=== PATIENT | female | born 1965 | race Caucasian/White ===

== ENCOUNTER 2019-10-23 15:25 | Emergency (ER) | payer OTHER ==
[~2019-10-23] VITALS: Ht 180.3 cm; Wt 68.2 kg
[2019-10-23] MEDS ORDERED: normal saline 1000ML IV soln IVB ONE (15:45)
[2019-10-23] MEDS ORDERED: thiamine 100mg/ml 2ml inj. IV ONE (15:45)
[2019-10-23] MEDS ORDERED: folic acid 1mg/0.2ml inj IV ONE (15:45)
[2019-10-23 16:01] LABS: CLARITY,URINE CLEAR (Clear); COLOR,URINE YELLOW (Yellow); GLUCOSE, URINE NEGATIVE (Neg); KETONES,URINE NEGATIVE (Neg); LEUKOCYTE ESTERASE ,URINE NEGATIVE (Neg); NITRITES, URINE NEGATIVE (Neg); OCCULT BLOOD,URINE NEGATIVE (Neg); PROTEIN,URINE NEGATIVE (Neg); UROBILINOGEN,URINE 0.2 E.U/dL (0.2-1.0)
[2019-10-23 16:05] LABS: UA COLLECTION TYPE OTHER; URINE AMPHETAMINE SCREEN NEGATIVE (Neg); URINE BARBITUATE SCREEN NEGATIVE (Neg); URINE BENZODIAZEPINES SCREEN POSITIVE (Neg); URINE CANNABINOID SCREEN NEGATIVE (Neg); URINE COCAINE SCREEN NEGATIVE (Neg); URINE METHADONE SCREEN NEGATIVE (Neg); URINE OPIATE SCREEN NEGATIVE (Neg); URINE PHENCYCLIDINE SCREEN NEGATIVE (Neg)
[2019-10-23 16:15] LABS: BASOPHILS % (AUTO) 0.4 % (0-1); EOSINOPHILS % (AUTO) 0.4 % (0-6); HEMOGLOBIN 13.6 g/dl (12.0-16.0); LYMPHOCYTES # (AUTO) 2.8 X10'3 (1.1-4.8); LYMPHOCYTES % (AUTO) 32.7 % (21-51); MEAN CORPUSCULAR HEMOGLOBIN 36.8 PG (27.0-31.0); MEAN CORPUSCULAR HGB CONC 35.8 g/dL (33.0-36.5); MEAN CORPUSCULAR VOLUME 102.9 FL (78-98); MEAN PLATELET VOLUME 6.8 FL (7.4-10.4); MONOCYTES # (AUTO) 0.4 X10'3 (0-0.9); MONOCYTES % (AUTO) 4.3 % (2-12); NEUTROPHILS # (AUTO) 5.4 X10'3 (1.8-7.7); NEUTROPHILS % (AUTO) 62.2 % (42-75); PLATELET COUNT 244 X10'3 (140-440); RED CELL DISTRIBUTION WIDTH 12.8 % (11.5-14.5); WHITE BLOOD COUNT 8.6 X10'3 (4.5-11.0)
[2019-10-23 16:25] LABS: ALANINE AMINOTRANSFERASE 30 U/L (12-78); ALBUMIN 3.6 G/DL (3.4-5.0); ALBUMIN/GLOBULIN RATIO 1.1 (1.1-1.5); ALKALINE PHOSPHATASE 63 IU/L (46-116); ANION GAP 9 (8-16); ASPARTATE AMINO TRANSFERASE 30 U/L (10-37); BILIRUBIN,TOTAL 0.4 MG/DL (0.1-1.0); BLOOD UREA NITROGEN 11 MG/DL (7-18); BUN/CREATININE RATIO 15.5 (6.6-38.0); CHLORIDE 108 MMOL/L (99-107); CREATININE 0.71 MG/DL (0.40-0.90); ETHANOL 0.288 GM/DL (0.0-0.010); GLUCOSE 99 MG/DL (70-104); SODIUM 144 MMOL/L (135-145); TOTAL CARBON DIOXIDE 26.8 MMOL/L (24-32); eGFR 86 ML/MIN
[2019-10-23 16:34] LABS: ACETAMINOPHEN < 2.0 UG/ML (10-30)
[2019-10-23] MEDS ORDERED: CLON0.5T23 PO (17:18)
[2019-10-23] MEDS ORDERED: BECL7.3A INH (17:18)
[2019-10-23] MEDS ORDERED: HYDR-3972 PO ×2 (17:18→19:19)
[2019-10-23] MEDS ORDERED: AMIT75TA2 PO (17:18)
[2019-10-23] MEDS ORDERED: ESTR1PAT TD (17:21)
[2019-10-23] MEDS ORDERED: ETON1VAG VG ×2 (17:21→17:57)
[2019-10-23] MEDS ORDERED: DULO60CA65 PO (17:21)
[2019-10-23] MEDS ORDERED: DEXL60CA3 PO (17:21)
[2019-10-23] MEDS ORDERED: PROG200C11 PO (17:25)
[2019-10-23] MEDS ORDERED: FISH12002 PO (17:25)
[2019-10-23] MEDS ORDERED: LEVA15HF4 INH (17:25)
[2019-10-23] MEDS ORDERED: LISI-600 PO (17:25)
[2019-10-23] MEDS ORDERED: LORA-269 PO (17:25)
[2019-10-23] MEDS ORDERED: ALPR1TAB7 PO (17:39)
[2019-10-23] MEDS ORDERED: AMIT50TA3 PO (17:43)
[2019-10-23] MEDS ORDERED: LAMO100T2 PO (17:57)
[2019-10-23] MEDS ORDERED: DIAZ10TA4 PO (17:57)
[2019-10-23] MEDS ORDERED: FINA5TAB11 PO (18:14)
[2019-10-23] MEDS ORDERED: NALO25TA PO (18:18)
[2019-10-23] MEDS ORDERED: ESTR1VAG VG (18:18)
[2019-10-23] MEDS ORDERED: IMIQ1CRE TP (18:23)
[2019-10-23] MEDS ORDERED: SULF1TAB49 PO (18:24)
[2019-10-23] MEDS ORDERED: CLOB15OI3 TOP (18:35)
[2019-10-23] MEDS ORDERED: PROG100C11 PO (18:54)
[2019-10-23] MEDS ORDERED: LIOT5TAB10 PO (18:54)
[2019-10-23] MEDS ORDERED: LORazepam 1 MG tablet PO ONE (19:00)
[2019-10-23] MEDS ORDERED: ALPRAZolam 0.5mg tablet PO PRN (19:30)
[2019-10-23] MEDS ORDERED: ETHINYL ESTRADIOL VG SCH (19:30)
[2019-10-23] MEDS ORDERED: ETONOGESTREL VG SCH (19:30)
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
[2019-10-23] MEDS: lamoTRIgine 100mg tablet PO SCH (20:00)
[2019-10-23] MEDS: sulfamethoxazole/trimethoprim DS (800/160mg) tablet PO SCH (20:00)
[2019-10-23] MEDS: clobetasol propionate ointment 15gm TP SCH (20:00)
[2019-10-23] MEDS: finasteride 5mg tablet PO SCH (20:45)
[2019-10-23] MEDS: amitriptyline 50mg tablet PO SCH (20:45)
[2019-10-23] MEDS: HYDROcodone/acetaminophen 10/325mg tab PO PRN (20:46)
[2019-10-23] MEDS: diazepam 5mg tablet PO PRN (20:47)
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
[2019-10-23] MEDS ORDERED: Melatonin 3mg tablet PO SCH (22:05)
[2019-10-23] MEDS ORDERED: Melatonin 3mg tablet PO ONE (22:05)
--- NOTE | 2019-10-23 23:05 | NUR ---
PT APPEARS TO BE SLEEPING, NO S/S DISTRESS NOTED.
--- NOTE | 2019-10-24 01:25 | NUR ---
Pt was up to use restroom, gate steady, no s/s of distress noted. pt immediate went back to sleep.
--- NOTE | 2019-10-24 03:50 | NUR ---
PT CONTINUES TO SLEEP, NO S/S DISTRESS NOTED.
--- NOTE | 2019-10-24 04:45 | NUR ---
pt is sleeping on left side rr unlabored, no s/s of distress noted.
--- NOTE | 2019-10-24 04:52 | NUR ---
pt refused to take Lamictal, septra, liothyronine, and clobetasol prop ointment, claiming that she does not take these meds. Pharmacist confirmed with [facility] that pt is prescribed these medications.
[2019-10-24] MEDS: HYDROcodone/acetaminophen 10/325mg tab PO PRN ×2 (05:12→13:47)
[2019-10-24] MEDS ORDERED: ALPRAZolam 0.5mg tablet PO ONE (05:25)
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
--- NOTE | 2019-10-24 07:30 | NUR ---
Spoke with patient regarding her suicidal ideations and absolutely denies ever having any suicidal ideations, despite written documentation of this. Continued to focus on her and her 's marital issues and counseling they need. Long conversation regarding anything other than the events leading up to her drinking yesterday. Denies need for inpatient care.
[2019-10-24] MEDS ORDERED: (Naloxegol Oxalate (Movantik) 1 TAB) PO SCH (08:00)
[2019-10-24] MEDS: lamoTRIgine 100mg tablet PO SCH ×2 (08:00→20:49)
[2019-10-24] MEDS: clobetasol propionate ointment 15gm TP SCH ×2 (08:00→20:00)
[2019-10-24] MEDS ORDERED: IMIQUIMOD TOP SCH (08:00)
[2019-10-24] MEDS: sulfamethoxazole/trimethoprim DS (800/160mg) tablet PO SCH ×2 (08:00→20:00)
--- NOTE | 2019-10-24 08:19 | NUR ---
offered patient her breakfast tray but she waved it away and refused it when I tried to place it on the bedside table.
[2019-10-24] MEDS: finasteride 5mg tablet PO SCH (08:39)
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
--- NOTE | 2019-10-24 13:12 | NUR ---
Patient yelling at nurse to "Do your job and stop asking me questions, go! Do your job"
[2019-10-24] MEDS ORDERED: LORazepam 1 MG tablet PO ONE (13:35)
[2019-10-24] MEDS ORDERED: ALPRAZolam 0.5mg tablet PO PRN ×2 (13:53→13:55)
[2019-10-24] MEDS ORDERED: haloperidol lactate 5mg/ml inj IM ONE (14:30)
--- NOTE | 2019-10-24 14:32 | NUR ---
called to speak with me and informed him that I was not able to give him any information regarding Olga due to HIPPA. He did continue to inform me that patient called him and stated she "plans to run from ER overflow and commit suicide". Informed that I had heard and noted what he told me. Conversation ended. Charged nurse Cristina informed of situation. Elopement band placed on patient and made 1:1 observation. Patients behavior continues to escalate and becoming more agitated. Security at bedside observing as well. JUAN M Merrill informed and entering some behavioral medications to be given if needed.
--- NOTE | 2019-10-24 15:00 | NUR ---
Patient with friend at bedside. Behavior has de-escalated and not needing medications at this time. She has been cooperative.
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
[2019-10-24] MEDS ORDERED: FINA1TAB17 PO (17:16)
--- NOTE | 2019-10-24 17:30 | NUR ---
Pt. up to desk asking about medications and wanting to use phone to call her about bringing her medications. pt. agitated and crying. Pt. was allowed to use the phone to call with promise not to fight loudly or phone would be taken away. pt. agreed and talked somewhat quietly but sobbing. spoke with and informed him of visiting hours and that he could bring her skin medication after hours and leave it at the javascript front end developer.
[2019-10-24 17:31] VITALS: BP 156/95
--- NOTE | 2019-10-24 18:35 | NUR ---
received report from RN. pt. asking when night meds are given, now resting with eyes closed.
[2019-10-24] MEDS: diazepam 5mg tablet PO PRN (19:26)
--- NOTE | 2019-10-24 20:30 | NUR ---
brought medication and left it at front. pt. given medication but continues to cry loudly.
[2019-10-24] MEDS: amitriptyline 50mg tablet PO SCH (21:00)
--- NOTE | 2019-10-24 21:30 | NUR ---
pt. agreed to take Haldol to help her sleep as she cannot quit crying and can't sleep. Pt. cooperative but easily angered about her situation with her .
--- NOTE | 2019-10-24 22:41 | NUR ---
Report given to Mental Health upstairs JUSTYNA Shook. will send someone to get her shortly.
[2019-10-28] MEDS ORDERED: LAMO100T PO (09:43)
[2019-10-28] MEDS ORDERED: AMIT-189 PO (09:43)
[2020-01-21] MEDS ORDERED: ESTRADIOL 2 MG VG SCH (08:00)
== END 2019-10-24 22:45 ==
LOC: ER 15:25
DX: T42.4X2A Poisoning by benzodiazepines, intentional self-harm, initial encounter (principal); F10.920 Alcohol use, unspecified with intoxication, uncomplicated; F43.10 Post-traumatic stress disorder, unspecified; Z79.899 Other long term (current) drug therapy; Z88.0 Allergy status to penicillin; X83.8XXA Intentional self-harm by other specified means, initial encounter; Y93.89 Activity, other specified; Y92.89 Other specified places as the place of occurrence of the external cause; Y99.9 Unspecified external cause status; Y90.9 Presence of alcohol in blood, level not specified
CPT/HCPCS: 36415; 80053; 80305; 80320; 80329; 81003; 84443; 85025; 96372; 96374; 96375; 99285; J1630; J3411; J3490; J7030

== ENCOUNTER 2021-06-22 14:29 | Emergency (ER) | payer OTHER ==
[~2021-06-22] VITALS: Ht 185.4 cm; Wt 70.0 kg
[~2021-06-22 14:29] MED LIST: ALPR1TAB7 PO; AMIT-189 PO; CLOB15OI3 TOP; ESTR1VAG VG; ETON1VAG VG; FINA1TAB17 PO; HYDR-3972 PO; IMIQ1CRE TP; LAMO100T PO; LIOT5TAB10 PO; NALO25TA4 PO; PROG100C11 PO
--- NOTE | 2021-06-22 14:34 | NUR ---
VIANCA, PT'S [phone]
[2021-06-22 15:44] VITALS: BP 163/79
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
== END 2021-06-22 16:02 | disposition home or self-care (01) ==
LOC: ER 14:30
DX: F10.229 Alcohol dependence with intoxication, unspecified (principal); F43.10 Post-traumatic stress disorder, unspecified; Z72.89 Other problems related to lifestyle; Z88.0 Allergy status to penicillin; Z79.899 Other long term (current) drug therapy; Y90.9 Presence of alcohol in blood, level not specified
CPT/HCPCS: 99283

== ENCOUNTER 2021-07-14 00:23 | Emergency (ER) | payer OTHER ==
[~2021-07-14] VITALS: Ht 180.3 cm; Wt 77.3 kg
[2021-07-14] MEDS ORDERED: ibuprofen 200mg tablet PO ONE (01:35)
[2021-07-14 01:56] LABS: BASOPHILS % (AUTO) 0.5 % (0-1); EOSINOPHILS # (AUTO) 0.1 X10'3 (0-0.9); EOSINOPHILS % (AUTO) 1.5 % (0-6); HEMATOCRIT 33.7 % (35.0-45.0); HEMOGLOBIN 12.1 g/dl (12.0-16.0); LYMPHOCYTES # (AUTO) 1.9 X10'3 (1.1-4.8); LYMPHOCYTES % (AUTO) 34.1 % (21-51); MEAN CORPUSCULAR HEMOGLOBIN 38.3 PG (27.0-31.0); MEAN CORPUSCULAR HGB CONC 35.8 g/dL (33.0-36.5); MEAN PLATELET VOLUME 7.5 FL (7.4-10.4); MONOCYTES # (AUTO) 0.4 X10'3 (0-0.9); MONOCYTES % (AUTO) 6.6 % (2-12); NEUTROPHILS # (AUTO) 3.1 X10'3 (1.8-7.7); NEUTROPHILS % (AUTO) 57.3 % (42-75); PLATELET COUNT 266 X10'3 (140-440); RED BLOOD COUNT 3.15 X10'6 (4.20-5.60); RED CELL DISTRIBUTION WIDTH 14.2 % (11.5-14.5); WHITE BLOOD COUNT 5.5 X10'3 (4.5-11.0)
[2021-07-14 02:14] LABS: URINE AMPHETAMINE SCREEN NEGATIVE (Neg); URINE BARBITUATE SCREEN NEGATIVE (Neg); URINE BENZODIAZEPINES SCREEN POSITIVE (Neg); URINE CANNABINOID SCREEN NEGATIVE (Neg); URINE COCAINE SCREEN NEGATIVE (Neg); URINE METHADONE SCREEN NEGATIVE (Neg); URINE OPIATE SCREEN POSITIVE (Neg); URINE PHENCYCLIDINE SCREEN NEGATIVE (Neg)
[2021-07-14 02:19] LABS: ALANINE AMINOTRANSFERASE 29 U/L (12-78); ALBUMIN 3.5 G/DL (3.4-5.0); ALKALINE PHOSPHATASE 87 IU/L (46-116); ANION GAP 9 (8-16); ASPARTATE AMINO TRANSFERASE 25 U/L (10-37); BILIRUBIN,TOTAL 0.2 MG/DL (0.1-1.0); BLOOD UREA NITROGEN 12 MG/DL (7-18); BUN/CREATININE RATIO 13.6 (6.6-38.0); CALCIUM 8.1 MG/DL (8.5-10.1); CHLORIDE 104 MMOL/L (99-107); CREATININE 0.88 MG/DL (0.40-0.90); ETHANOL 0.016 GM/DL (0.0-0.010); GLUCOSE 101 MG/DL (70-104); SODIUM 140 MMOL/L (135-145); TOTAL CARBON DIOXIDE 27.1 MMOL/L (24-32); TOTAL PROTEIN 6.9 G/DL (6.4-8.2); eGFR 67 ML/MIN
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
--- NOTE | 2021-07-14 03:10 | NUR ---
Packet sent to [facility]
[2021-07-14] MEDS ORDERED: PROG200C11 PO ×2 (03:22→10:31)
[2021-07-14] MEDS ORDERED: norco 10/325 PO (03:27)
[2021-07-14] MEDS ORDERED: NALO25TA4 PO ×2 (03:27→17:01)
[2021-07-14] MEDS ORDERED: VORT20TA PO ×2 (03:27→16:34)
[2021-07-14] MEDS ORDERED: AMIT-189 PO ×2 (03:27→10:31)
--- NOTE | 2021-07-14 04:55 | NUR ---
The patient up to use the bathroom
--- NOTE | 2021-07-14 07:25 | NUR ---
VIANCA PT'S 'S PHONE NUMBER: [phone] VIANCA CALLED, WANTING TO GIVE THE RN INFORMATION REGARDING THE PT. I LET HIM KNOW THAT I WOULD HAVE THE RN GIVE HIM A CALL BACK WHEN SHE HAS A CHANCE.
--- NOTE | 2021-07-14 08:51 | NUR ---
KEELEY FROM [facility]ENT[facility] SPOKE WITH PT, WORKING ON A PLAN FOR POSSIBLE TREATMENT PROGRAM
--- NOTE | 2021-07-14 10:18 | NUR ---
PT RESTING QUIETLY ON HER BED
[2021-07-14] MEDS ORDERED: TRINTELLIX PO (10:29)
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
--- NOTE | 2021-07-14 12:45 | NUR ---
PT RESTING ON BED, EFFORTLESS RESPIRATIONS OBSERVED.
[2021-07-14] MEDS ORDERED: HYDR-3972 PO (15:54)
[2021-07-14] MEDS ORDERED: OMEP20TA23 PO (15:54)
[2021-07-14] MEDS ORDERED: CHLO25CA10 PO (15:54)
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
[2021-07-14] MEDS ORDERED: CYAN10007 IM (16:58)
[2021-07-14] MEDS ORDERED: FOLI0.4T14 PO (16:58)
[2021-07-14] MEDS ORDERED: CHLO5CAP3 PO (16:58)
[2021-07-14] MEDS ORDERED: ESTR1VAG VG (17:01)
--- NOTE | 2021-07-14 17:19 | NUR ---
Deputy Vasquez to be called tonight after 1900 and to F/U for pt to file complaint/report. Non-distress line #:
[2021-07-14] MEDS ORDERED: chlordiazePOXIDE 5mg capsule PO PRN (17:25)
[2021-07-14] MEDS: HYDROcodone/acetaminophen 5mg/325mg tablet PO PRN (18:03)
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
--- NOTE | 2021-07-14 19:15 | NUR ---
The patient is refusing to talk with [employer] to file a report. She made loud crying sounds but no tears observed. She attempted to call her therapsit but was unable to reach her but she did leave a message. car stower made aware that the patient is not wanting to file a complaint at this time.
--- NOTE | 2021-07-14 19:56 | NUR ---
The patient is quite dramatic and histrionic. She is making loud sighing sounds that can be heard throughout the overflow area of the ER.
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
--- NOTE | 2021-07-14 20:12 | NUR ---
general education instructor made aware that the patient is requesting a grievence form and she recommended that the patient call directly to administration. The patient was given that information but she insists that she would like a form. She was made aware that her request would be followed up in the AM.
--- NOTE | 2021-07-14 20:42 | NUR ---
Report to [facility] in [place]
[2021-07-14] MEDS ORDERED: amitriptyline 50mg tablet PO SCH (21:00)
[2021-07-14] MEDS ORDERED: progesterone, micronized 100mg capsule PO SCH ×2 (21:00)
--- NOTE | 2021-07-14 22:11 | NUR ---
Patient accepted to [facility] office will transport in am nurse to nurse before transport [phone]
--- NOTE | 2021-07-14 22:45 | NUR ---
Spoke with Jia RN to have a provider come down and eval pt meds do to contined Manic Bx. Pt has been here sence 07/11 with no improvment.
--- NOTE | 2021-07-14 22:45 | NUR ---
Note coretta in ED - 07/14/21 at 2248 by LENA Spoke with Jia JANSEN to have a provider come down and eval pt meds do to contined Manic Bx. Pt has been here jorge 07/11 with no improvment.
--- NOTE | 2021-07-14 22:54 | NUR ---
The patient appears to be sleeping
--- NOTE | 2021-07-15 00:42 | NUR ---
The patient appears to be sleeping
--- NOTE | 2021-07-15 02:30 | NUR ---
The patient appears to be sleeping
[2021-07-15] MEDS: HYDROcodone/acetaminophen 5mg/325mg tablet PO PRN (03:12)
--- NOTE | 2021-07-15 03:12 | NUR ---
The patient awakened and was making loud crying sounds. Patient approached and had no tears. Stated that she did not feel she could go to a rehab for 30 days and be in pain. [place] given.
--- NOTE | 2021-07-15 05:20 | NUR ---
The patient is resting on her bed
[2021-07-15] MEDS ORDERED: pantoprazole 40mg Tablet.DR PO SCH (08:00)
[2021-07-15] MEDS ORDERED: folic acid 1mg tablet PO SCH (08:00)
[2021-07-15] MEDS ORDERED: non-formulary drug (Vortioxetine Hydrobromide (Brintellix) 1 TAB) PO SCH (08:00)
[2021-07-15] MEDS ORDERED: voritoxetine HBr tablet 5 MG TABLET PO SCH (08:00)
[2021-07-15 11:29] VITALS: BP 129/86
[2021-07-19] MEDS ORDERED: cyanocobalamin 1,000 mcg/ml inj IM SCH (08:00)
== END 2021-07-15 11:33 ==
LOC: ER 00:24
DX: R45.851 Suicidal ideations (principal); F10.129 Alcohol abuse with intoxication, unspecified; Y90.9 Presence of alcohol in blood, level not specified; Z88.0 Allergy status to penicillin; Z20.822 Contact with and (suspected) exposure to COVID-19
CPT/HCPCS: 36415; 80053; 80305; 80320; 84443; 85025; 87635; 99285; C9803